=== PATIENT | male | born 1995 ===

== ENCOUNTER 2022-08-26 11:46 | Emergency (ER) | payer SELFPAY ==
[2022-08-26 14:06] LABS: Basophils # (Auto) 0.1 K/mm3 (0.0-0.1); Basophils % (Auto) 0.4 % (0.0-1.8); Eosinophils # (Auto) 0.1 K/mm3 (0.0-0.4); Eosinophils % (Auto) 0.4 % (0.0-4.3); Hematocrit 47.2 % (35.5-45.6); Hemoglobin 15.8 gm/dl (11.8-15.2); Lymphocytes % (Auto) 6.6 % (13.4-35.0); Mean Corpuscular HGB Conc 33 % (32-34); Mean Corpuscular Volume 98 fl (84-94); Monocytes # (Auto) 1.4 K/mm3 (0.0-0.8); Monocytes % (Auto) 9.5 % (0.0-7.3); Platelet Count 203 K/mm3 (140-440); Red Blood Count 4.82 M/mm3 (3.65-5.03); Red Cell Distribution Width 13.9 % (13.2-15.2)
[2022-08-26 14:15] LABS: Albumin 5.1 g/dL (3.9-5)
[2022-08-26 14:33] LABS: Alanine Aminotransferase 16 units/L (7-56); BUN/Creatinine Ratio 7; Blood Urea Nitrogen 6 mg/dL (9-20); Calcium 9.7 mg/dL (8.4-10.2); Hemolysis Index 28
--- NOTE | 2022-08-26 18:31 | Emergency Department Report ---
ED Psych HPI - General Chief Complaint: Psych Stated Complaint: SI Time Seen by Provider: 08/26/22 12:35 Source: patient, EMS Mode of arrival: Ambulatory - History of Present Illness Initial Comments: Patient is a 27-year-old male presenting to ED with complaint of suicidal ideat ion without a plan. Reports having issues with recent break-up with his girlfriend and being homeless. - Related Data Allergies Allergy/AdvReac Type Severity Reaction Status Date / Time No Known Allergies Allergy Verified 08/26/22 11:54 ED Review of Systems ROS: Stated complaint: SI Other details as noted in HPI Constitutional: denies: chills, fever Respiratory: denies: cough, shortness of breath, wheezing Cardiovascular: denies: chest pain, palpitations Gastrointestinal: denies: abdominal pain, nausea, diarrhea Genitourinary: denies: urgency, dysuria Musculoskeletal: denies: back pain, joint swelling, arthralgia Skin: denies: rash, lesions Neurological: denies: headache, weakness, paresthesias Psychiatric: suicidal thoughts ED Physical Exam - General Limitations: No Limitations General appearance: alert, in no apparent distress - Head Head exam: Present: atraumatic, normocephalic - Respiratory Respiratory exam: Present: normal lung sounds bilaterally. Absent: respiratory distress - Cardiovascular Cardiovascular Exam: Present: regular rate, normal rhythm, normal heart sounds - GI/Abdominal GI/Abdominal exam: Present: soft. Absent: distended, tenderness - Rectal Rectal exam: Present: deferred - Neurological Exam Neurological exam: Present: alert, oriented X3 - Psychiatric Psychiatric exam: Present: normal affect, normal mood - Skin Skin exam: Present: warm, dry, intact, normal color ED Medical Decision Making - Lab Data Result diagrams: 08/26/22 13:48 08/26/22 13:48 - Medical Decision Making Labs reviewed. WBC count 15. Vital signs are stable. Chemistry unremarkable. UDS and mental health evaluation pending. Critical care attestation.: If time is entered above; I have spent that time in minutes in the direct care of this critically ill patient, excluding procedure time. ED Disposition Clinical Impression: Suicidal ideation Disposition: 30 STILL A PATIENT Is pt being admited?: No Condition: Stable
--- NOTE | 2022-08-27 08:59 | Consultation ---
History of Present Illness - Reason for Consult Consult date: 08/27/22 Reason for consult: SI - History of Present Psychiatric Illness The patient was seen today. He is sleeping but easily arouses. He initially said he didn't feel like talking because he had a severe sore throat and didn't feel well. The patient says he presented to the ER for suicidal thoughts. He said "but I only said that because I was frustrated." He says "got a lot of things going on." The patient says he gets depressed sometimes, but states he "feels okay now." He denies being SI/HI. He denies a suicide attempt in the past. He also denies hallucinations of any kind. The patent denies any illicit drug use, but states that he drinks alcohol every other day. He says drinks a can of beer. The patient denies any past psych history or being on any psych meds. REVIEW OF SYSTEMS Constitutional: Negative for weight loss ENT: Negative for stridor Respiratory: Negative for cough or hemoptysis All other systems reviewed and are negative MENTAL STATUS EXAMINATION General Appearance and Behavior: Age appropriate, good hygiene, wearing appr opriate clothes. Cooperation: Uncooperative Psychomotor Behavior: Psychomotor normal Mood: okay Affect and affective range: congruent with stated mood Thought Process: goal directed Thought Content: None Speech: Normal volume, Regular rate and rhythm, Suicidal Ideation: Denies Homicidal Ideation: Denies Hallucinations: Denies Delusions: None elicited Impulse Control: Unimpaired Insight and Judgment: Limited Memory: limited Attention: attentive Orientation: alert and oriented Assessment and Plan (1) Mood Disorder, Unspecified Continue d/c 1013 The patient to comply with previously prescribed medications Risks, benefits and alternatives of medications discussed with the patient, questions answered and consent obtained from patient. PSYCHOTHERAPY: Supportive psychotherapy provided MEDICAL: Per primary team DELIRIUM PRECAUTIONS: Please re-orient patient frequently, keep lights on during the day, and minimize benzodiazepines and opiates as these medications could worsen patient's confusion. 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 Post hospital care: primary care provider, psychiatric provider Case staffed with Dr. Kumari Medications and Allergies Allergies Allergy/AdvReac Type Severity Reaction Status Date / Time No Known Allergies Allergy Verified 08/26/22 11:54 Mental Status Exam - Vital signs Last Vital Signs Temp 99.4 F 08/26/22 20:05 Pulse 74 08/26/22 20:05 Resp 16 08/26/22 20:05 BP 114/59 08/26/22 20:05 Pulse Ox 97 08/26/22 20:14 Results Result Diagrams: 08/26/22 13:48 08/26/22 13:48 Abnormal lab results 08/26/22 08/26/22 08/26/22 Range/Units 13:48 13:48 13:48 WBC 15.1 H (4.5-11.0) K/mm3 Hgb 15.8 H (11.8-15.2) gm/dl Hct 47.2 H (35.5-45.6) % MCV 98 H (84-94) fl MCH 33 H (28-32) pg Lymph % (Auto) 6.6 L (13.4-35.0) % [place] % (Auto) 9.5 H (0.0-7.3) % Lymph # (Auto) 1.0 L (1.2-5.4) K/mm3 [place] # (Auto) 1.4 H (0.0-0.8) K/mm3 Seg Neutrophils % 83.1 H (40.0-70.0) % Seg Neutrophils # 12.5 H (1.8-7.7) K/mm3 Sodium 134 L (137-145) mmol/L Chloride 95.9 L (98-107) mmol/L BUN 6 L (9-20) mg/dL Albumin 5.1 H (3.9-5) g/dL Salicylates < 0.3 L (2.8-20.0) mg/dL Acetaminophen (10.0-30.0) ug/mL 08/26/22 Range/Units 13:48 WBC (4.5-11.0) K/mm3 Hgb (11.8-15.2) gm/dl Hct (35.5-45.6) % MCV (84-94) fl MCH (28-32) pg Lymph % (Auto) (13.4-35.0) % [place] % (Auto) (0.0-7.3) % Lymph # (Auto) (1.2-5.4) K/mm3 [place] # (Auto) (0.0-0.8) K/mm3 Seg Neutrophils % (40.0-70.0) % Seg Neutrophils # (1.8-7.7) K/mm3 Sodium (137-145) mmol/L Chloride (98-107) mmol/L BUN (9-20) mg/dL Albumin (3.9-5) g/dL Salicylates (2.8-20.0) mg/dL Acetaminophen 5.0 L (10.0-30.0) ug/mL All other labs normal.
--- NOTE | 2022-08-27 11:31 | Emergency Department Report ---
Blank Doc - Documentation Documentation: 27-year-old with a history of depression. Patient was depressed not suicidal patient was seen by psych today and cleared. Vital signs are stable.
[2022-08-27 12:44] VITALS: BP 131/64
== END 2022-08-27 12:43 | disposition home or self-care (01) ==
LOC: ED 11:46 → EEVIPCON 11:46 → ED 08-27 12:43
DX: R45.851 Suicidal ideations (principal); Z79.899 Other long term (current) drug therapy
CPT/HCPCS: 36415; 80053; 80320; 85025; 99284; G0480